=== PATIENT | female | born 1985 | race Caucasian/White ===

== ENCOUNTER → 2024-04-08 09:47 | Outpatient (REF) | payer OTHER, SELFPAY | LOC: HWRAD 09:47 | PROVIDERS: ATTENDING PHYSICIAN Physician Assistant | DX: N80.9 Endometriosis, unspecified (principal); R10.2 Pelvic and perineal pain | CPT/HCPCS: 76830; 76856 ==

== ENCOUNTER 2024-04-09 18:05 | Emergency (ER) | payer OTHER, SELFPAY ==
[2024-04-09 18:07] VITALS: BP 144/86
[2024-04-09 18:20] LABS: % Basophils 1.1 % (0-2); % Immature Granulocytes 0.2 % (0-0.5); % Lymphocytes 43.7 % (20.5-51.1); Absolute Basophils 0.1 10^3/uL (0-0.2); Absolute Eosinophils 0.1 10^3/uL (0-0.7); Absolute Lymphocytes 2.8 10^3/uL (1.2-3.4); Absolute Monocytes 0.5 10^3/uL (0.1-0.6); Absolute Neutrophils 2.9 10^3/uL (1.4-6.5); Hematocrit 39.9 % (37.0-47.0); Hemoglobin 14.3 g/dL (12.0-16.0); Mean Corp Hgb Conc. 35.8 g/dL (33.0-37.0); Mean Corpuscular Hgb 31.3 pg (27.0-31.0); Mean Corpuscular Volume 87.3 fL (81.0-99.0); Mean Platelet Volume 11.1 fL (7.4-10.4); Nucleated Red Blood Cells % 0 %; Platelet Count 200 10^3/uL (130-400); Red Blood Cell Count 4.57 10^6/uL (4.20-5.40); Red Cell Dist. Width 12.1 % (11.5-14.5); White Blood Cell Count 6.4 10^3/uL (4.8-10.8)
[2024-04-09 18:57] LABS: HCG, Serum Qualitative Screen Negative
[2024-04-09 19:07] LABS: ALT (SGPT) 37 U/L (0-35); AST (SGOT) 28 U/L (14-36); Albumin 4.9 g/dl (3.5-5.0); Alkaline Phosphatase 64 U/L (38-126); Blood Urea Nitrogen 11 mg/dl (7-17); Calcium 9.9 mg/dl (8.4-10.2); Carbon Dioxide 30 mmol/L (22-30); Chloride 104 mmol/L (98-107); Glucose 97 mg/dl (70-99); Potassium 4.3 mmol/L (3.5-5.1); Sodium 139 mmol/L (135-145); Total Bilirubin 0.4 mg/dl (0.2-1.3); Total Protein 7.2 g/dl (6.3-8.2); eGFR > 60.00
[2024-04-09] MEDS: MORPHINE SULFATE 4 MG IV (20:05)
[2024-04-09] MEDS: TORADOL 15 MG IV (20:05)
--- NOTE | 2024-04-09 20:12 | ED.GENMED ---
History of Present Illness
General
Chief Complaint: Abdominal Pain
Time Seen by Provider: 04/09/24 19:16
History of Present Illness
History of Present Illness:
38 yo female presents to the Emergency department for evaluation of bilateral lower abdominal pain persistent for the past 4 months but worsening over the past week. She had an outpatient ultrasound yesterday showing a 2.7 cm left ovarian cyst with
no free fluid or signs of hemorrhage. No fevers or chills. Also notes some vaginal spotting. Was previously on maintenance dose of norethindrone 5mg but prior to onset of new symptoms, had decreased to 0.035mg.
Past History
Past History
ED Past Medical History: Other ('VSD', Migraine); Negative Asthma, HTN, Hypercholesterolemia or NIDDM
ED Past Surgical History: Cardiac (Heart surgery at age 5,), Gynecological (Ovarian cyst removed) and Orthopedic
Social History
Tobacco: Non-smoker
Alcohol: Occasional
Personal:
Living: with family
Employment: Employed
Review of Systems
Review of Systems
Allergies reviewed?: Yes
All Other Systems: ROS reviewed and negative except as documented in HPI and ROS
Phy Exam
Physical Exam
Physical Exam:
GEN: Well appearing, NAD, WDWN
HEENT: Oral mucosa moist, no scleral icterus
Cardiac: Regular rate
Lung: No respiratory distress, no tachypnea
Abdomen: Diffusely tender to the lower abdomen, no rigidity, neg McBurney's
MSK: No gross deformity or injuries
Skin: Good color, no pallor or jaundice, no rashes
Neuro: AO x3, moves all extremities freely
Psych: Calm, cooperative
Course
Orders/Labs/Results
Orders:
Orders
04/09/24 18:11
Test Result ONCE
04/09/24 18:15
Complete Blood Count/With Diff Urgent
Comprehensive Metabolic Panel Urgent
HCG, Serum Qualitative Screen Urgent
04/09/24 19:30
CT Abd/Pel (IV only)-DH only Urgent
Comment:
Reason For Exam: LLQ pain
04/09/24 20:01
Ketorolac [Toradol] 15 mg IV NOW STA
Morphine Sulfate 4 mg IV NOW STA
Abnormal Lab Results
04/09/24
18:15
MCH 31.3 H pg
(27.0-31.0)
MPV 11.1 H fL
(7.4-10.4)
ALT 37 H U/L
(0-35)
04/09/24 18:15
04/09/24 18:15
Vital Signs
Initial and Last Documented VS:
Initial Vital Signs
Temp Pulse Resp BP Pulse Ox
99.4 F 71 18 144/86 97
04/09/24 18:07 04/09/24 18:07 04/09/24 18:07 04/09/24 18:07 04/09/24 18:07
Last Documented Vital Signs
Temp Pulse Resp BP Pulse Ox
99.4 F 71 18 144/86 97
04/09/24 18:07 04/09/24 18:07 04/09/24 18:07 04/09/24 18:07 04/09/24 18:07
MDM/Problems Addressed
MDM/Problems Addressed:
Unfortunately imaging reveals no obvious pathology. I suspect there is likely some component of endometriosis or other chronic pelvic disorder. She is encouraged to follow-up as an outpatient with [facility]. Small quantity of pain medicine prescribed
*Critical Care Note
Total Time (30-74mins, 75-104mins- exclusive of procedures): Not Applicable
ED Attending Note
-
Portions of this chart may have been created with voice recognition software.� Occasional wrong word or��sound alike� substitutions may have occurred due to the inherent limitations of voice recognition software.
Discharge Plan
Departure
Patient Disposition: Home (Routine Discharge)
Date of Disposition: 04/09/24
Time of Disposition: 20:29
Patient with high blood pressure during this ER visit?: No
Discharge Problem:
Left lower quadrant abdominal pain, Ovarian cyst
Instructions: Ovarian Cyst (DC)
Prescriptions:
New
oxycodone-acetaminophen [Percocet] 5-325 mg tablet
1 tab PO Q6HPRN PRN (Reason: pain) Qty: 12 0RF
No Action
prenat.vits,dez,mlk-wpge-ugkbi [ Vitamin] 1 EACH tablet
1 tab PO DAILY
ibuprofen 600 MG tablet
600 mg PO Q4HPRN PRN (Reason: moderate pain/cramps) 0RF
Referrals:
Zeinab Sykes PA [Family Provider] -
Kamille Copeland MD [Active] - Call in 1-3 days for appt
Activity Restrictions/Additional Instructions:
Follow up with [facility] as soon as possible to discuss further management
Interventions
Interventions:
*Risk Screen - Suicide Last Done: 04/09/24 18:07
*General Assessment Last Done: 04/09/24 18:07
*Neglect/Abuse Screening Last Done: 04/09/24 18:07
ED- Fall Risk Assessment Last Done: 04/09/24 20:50
IK-Fxwatq-Adsenojkky Assessment Last Done: 04/09/24 20:50
Discharge Date and Time
Print Language: MOHAWK
== END 2024-04-09 21:02 | disposition home or self-care (01) ==
LOC: EMR 18:05
PROVIDERS: Emergency Medicine; EMERGENCY PHYSICIAN Emergency Medicine; FAMILY PHYSICIAN Physician Assistant
DX: R10.32 Left lower quadrant pain (principal); N83.202 Unspecified ovarian cyst, left side
CPT/HCPCS: 99284; 96374; 96375; 74177; 80053; 84703; 85025; Q9967

== ENCOUNTER → 2024-08-15 15:30 | Outpatient (REF) | payer OTHER, SELFPAY | LOC: CLAB 15:30 | PROVIDERS: ATTENDING PHYSICIAN Otolaryngology | DX: J30.9 Allergic rhinitis, unspecified (principal) | CPT/HCPCS: 87070; 87205 ==

== ENCOUNTER → 2025-03-20 13:43 | Outpatient (REF) | payer OTHER, SELFPAY ==
[2025-03-20 14:29] LABS: ALT (SGPT) 28 U/L (0-35); AST (SGOT) 19 U/L (14-36); Albumin 4.7 g/dl (3.5-5.0); Alkaline Phosphatase 39 U/L (38-126); Blood Urea Nitrogen 9 mg/dl (7-17); Calcium 9.4 mg/dl (8.4-10.2); Carbon Dioxide 25 mmol/L (22-30); Chloride 110 mmol/L (98-107); Glucose 114 mg/dl (70-99); Potassium 3.9 mmol/L (3.5-5.1); Sodium 140 mmol/L (135-145); Total Protein 7.3 g/dl (6.3-8.2); eGFR > 60.00
== END ==
LOC: RAD 13:43
PROVIDERS: ATTENDING PHYSICIAN Family Medicine
DX: K57.92 Diverticulitis of intestine, part unspecified, without perforation or abscess without bleeding (principal); R10.9 Unspecified abdominal pain
CPT/HCPCS: 36415; 74177; 80053; Q9967

== ENCOUNTER 2025-04-06 10:30 | Emergency (ER) | payer OTHER, SELFPAY ==
[2025-04-06 10:33] VITALS: BP 135/87
[2025-04-06 12:37] VITALS: BP 136/82
[2025-04-06] MEDS: NSS 1000 IV (12:52)
[2025-04-06 12:55] LABS: Hematocrit 44.7 % (37.0-47.0); Hemoglobin 15.7 g/dL (12.0-16.0); Mean Corp Hgb Conc. 35.1 g/dL (33.0-37.0); Mean Corpuscular Volume 89.6 fL (81.0-99.0); Nucleated Red Blood Cells % 0 %; Platelet Count 212 10^3/uL (130-400); Red Cell Dist. Width 12.3 % (11.5-14.5)
[2025-04-06 12:57] LABS: Urine Character Clear (Clear)
[2025-04-06] MEDS: TORADOL 15 MG IV (12:57)
[2025-04-06 12:59] VITALS: BMI 25.9
[2025-04-06 13:00] VITALS: BP 132/85
--- NOTE | 2025-04-06 13:08 | ED.GENMED ---
History of Present Illness
General
Chief Complaint: Abdominal Pain
Source: patient
Exam Limitations: none
Time Seen by Provider: 04/06/25 11:49
Nursing documentation reviewed up to this point in time: agreed with
History of Present Illness
History of Present Illness:
39 yo female w h/o endometriosis, chronic GI problems, presenting with complaints of left-sided abdominal pain and general abdominal bloating. She describes the pain as pulling and states it is 'kind of all over' her left side. The symptoms have
been ongoing for some time, with a notable flare-up recently. The patient underwent a computed tomography (CT) scan on March 21 due to similar symptoms, which she arranged through her primary care provider. She reports being on a low-residue diet
since then and has been prescribed antibiotics. She initially took Augmentin from March 20 to March 23, discontinued it, due to unremarkable CT scan and then restarted antibiotics on April 02 after experiencing persistent symptoms.
The patient has a history of digestive issues for approximately two years, previously suspected to be related to gluten, which led her to cut it out of her diet a year ago. She also has endometriosis, for which she is on norethindrone. No new
medications have been started recently. The patient is currently experiencing significant discomfort, describing the pain as feeling like her �belly is going to explode.� She reports chronic abdominal pain associated with digestive issues and
endometriosis flare-ups, but notes the bloating and pain have increased in severity.
Past History
Past History
ED Past Medical History: Other (Endometriosis)
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
(PDA))
Social History
Tobacco: Non-smoker
Alcohol: Occasional
Personal:
Living: with family
Employment: Employed
Review of Systems
Review of Systems
Allergies reviewed?: Yes
All Other Systems: ROS reviewed and negative except as documented in HPI and ROS
Constitutional: Denies fever or chills
Cardiac: Denies chest pain
ABD/GI: Reports abdominal pain and constipated (has had few small hard stools past week, took laxative 5 days ago and had diarrhea next day otherwise, daily small stools continue); Denies nausea, vomiting or diarrhea
Phy Exam
Physical Exam
Physical Exam:
GENERAL: No acute distress. A&Ox3.
CONSTITUTIONAL: Afebrile.
EYES: clear, conjunctivae normal
ENMT: moist mucus membranes,
RESPIRATORY: Regular respirations, nonlabored, lungs clear.
CARDIOVASCULAR: Regular rate and rhythm, no murmurs, no rubs.
GI: Soft, generally moderately tender to palpation, normal BS
MUSCULOSKELETAL: Moves with ease. Well perfused.
SKIN: Warm, dry, pink
PSYCH: Normal mood and affect. Well kept, interactive and appropriate
NEUROLOGIC: Awake, alert and oriented. No focal neurological deficits
Course
Orders/Labs/Results
Orders:
Orders
04/06/25 12:15
IV Insert/Care/Rem.- Treatment PRN
Ketorolac [Toradol] 15 mg IM NOW STA
04/06/25 12:16
Test Result ONCE
04/06/25 12:21
0.9% Sodium Chloride 1000 ml [Nss] 1,000 ml IV BOLUS
Test Result ONCE
US Pelvis W Transvag Combined Urgent
Comment:
Reason For Exam: gen abd pain, neg CT scan, hx edometriosis
04/06/25 12:47
Complete Blood Count/With Diff Urgent
Comprehensive Metabolic Panel Urgent
HCG, Serum Qualitative Screen Urgent
Lipase Urgent
Urinalysis Reflex To Culture Urgent
Date Specimen was Collected: 04/06/25
Time Specimen was Collected: 12:19
Urine Microscopic Reflex Cult Urgent
04/06/25 12:54
Ketorolac [Toradol] 15 mg IV NOW STA
Abnormal Lab Results
04/06/25
12:47
MCH 31.5 H pg
(27.0-31.0)
MPV 10.6 H fL
(7.4-10.4)
ALT 43 H U/L
(0-35)
Urine Ketones 2+ A
(Negative)
Ur Occult Blood Reflex 2+ A
(Negative)
Urine RBC 3-6 A /HPF
(0-2)
04/06/25 12:47
04/06/25 12:47
Vital Signs
Initial and Last Documented VS:
Initial Vital Signs
Temp Pulse Resp BP Pulse Ox
98.1 F 71 16 135/87 100
04/06/25 10:33 04/06/25 10:33 04/06/25 10:33 04/06/25 10:33 04/06/25 10:33
Last Documented Vital Signs
Temp Pulse Resp BP Pulse Ox
98.1 F 65 19 127/83 99
04/06/25 10:33 04/06/25 15:45 04/06/25 15:45 04/06/25 15:00 04/06/25 15:45
MDM/Problems Addressed
Differential Diagnosis Includes:
- Diverticulitis
- Inflammatory Bowel Disease (Ulcerative Colitis, Crohns Disease)
- Irritable Bowel Syndrome
- Celiac Disease
- Small Intestinal Bacterial Overgrowth
- Endometriosis-associated intestinal involvement
- Gastroenteritis
- PID
MDM/Problems Addressed:
39 yo female w h/o endometriosis, chronic GI problems, presenting with complaints of left-sided abdominal pain and general abdominal bloating. She describes the pain as pulling and states it is 'kind of all over' her left side. The symptoms have
been ongoing for some time, with a notable flare-up recently. The patient underwent a computed tomography (CT) scan on March 21 due to similar symptoms, which she arranged through her primary care provider. She reports being on a low-residue diet
since then and has been prescribed antibiotics. She initially took Augmentin from March 20 to March 23, discontinued it, due to unremarkable CT scan and then restarted antibiotics on April 02 after experiencing persistent symptoms.
The patient has a history of digestive issues for approximately two years, previously suspected to be related to gluten, which led her to cut it out of her diet a year ago. She states she also has endometriosis, for which she is on norethindrone. No
new medications have been started recently. The patient is currently experiencing significant discomfort, describing the pain as feeling like her �belly is going to explode.� She reports chronic abdominal pain associated with digestive issues and
endometriosis flare-ups, but notes the bloating and pain have increased in severity. Ibuprofen helps the pain temporarily
3:[address] scan abd/pelvis with po and IV contrast from 03/21: No acute findings, no kidney stones.
CBC normal
CMP normal
Lipase normal
HCG neg.
US pelvis radiology report read: 1. Essentially unremarkable pelvic ultrasound as described. Copy given to pt.
Pt has GI appointment in 3 days.
She will use Ibuprofen in the meantime since it helped
She will continue Augmentin until further instructed by GI in 3 days.. No diarrhea
*Pulse Oximetry
SaO2: 100
Oxygen Mode of Delivery: Room air
Patient hypoxic: not evaluated
*Critical Care Note
Total Time (30-74mins, 75-104mins- exclusive of procedures): Not Applicable
ED Attending Note
-
Portions of this chart may have been created with voice recognition software.� Occasional wrong word or��sound alike� substitutions may have occurred due to the inherent limitations of voice recognition software.
Discharge Plan
Departure
Patient Disposition: Home (Routine Discharge)
Date of Disposition: 04/06/25
Time of Disposition: 15:52
Patient with high blood pressure during this ER visit?: No
Condition: Good
Discharge Problem:
Abdominal pain
Instructions: Abdominal Pain
Prescriptions:
No Action
prenat.vits,dez,bqm-asrl-symph [ Vitamin] 1 EACH tablet
1 tab PO DAILY
ibuprofen 600 MG tablet
600 mg PO Q4HPRN PRN (Reason: moderate pain/cramps) 0RF
oxycodone-acetaminophen [Percocet] 5-325 mg tablet
1 tab PO Q6HPRN PRN (Reason: pain) Qty: 12 0RF
Referrals:
Zeinab Sykes PA [Family Provider, Family Practice]
Activity Restrictions/Additional Instructions:
As we discussed, ibuprofen 600 mg every 6 hours as needed for pain.
Keep your appointment on Monday with the GI doctor.
Interventions
Interventions:
*Risk Screen - Suicide Last Done: 04/06/25 10:33
*General Assessment Last Done: 04/06/25 15:05
*Neglect/Abuse Screening Last Done: 04/06/25 10:33
*ED- Fall Risk Assessment Last Done: 04/06/25 15:05
*ED COVID-19 Vaccine History Last Done: 04/06/25 15:05
*Nursing Disposition Last Done: 04/06/25 16:12
YH-Zaebvl-Ngkeirtwhx Assessment Last Done: 04/06/25 15:08
Discharge Date and Time
Discharge Date/Time: 04/06/25 16:10
Print Language: POLISH
[2025-04-06 13:10] LABS: ALT (SGPT) 43 U/L (0-35); AST (SGOT) 21 U/L (14-36); Albumin 5.0 g/dl (3.5-5.0); Alkaline Phosphatase 49 U/L (38-126); Blood Urea Nitrogen 9 mg/dl (7-17); Calcium 9.5 mg/dl (8.4-10.2); Carbon Dioxide 27 mmol/L (22-30); Chloride 106 mmol/L (98-107); Estimated Creatinine Clearance 92 ml/min; Glucose 90 mg/dl (70-99); Lipase 176 U/L (23-300); Potassium 4.0 mmol/L (3.5-5.1); Sodium 139 mmol/L (135-145); Total Protein 7.8 g/dl (6.3-8.2); eGFR > 60.00
[2025-04-06 13:12] LABS: HCG, Serum Qualitative Screen Negative
[2025-04-06 13:28] LABS: Urine Squamous Cell >30 /LPF (Few)
[2025-04-06 13:30] LABS: Urine White Cell 0-2 /HPF (0-5)
[2025-04-06 14:00] VITALS: BP 123/76
[2025-04-06 15:00] VITALS: BP 127/83
== END 2025-04-06 16:10 | disposition home or self-care (01) ==
LOC: EMR 10:30
PROVIDERS: Registered Nurse; EMERGENCY PHYSICIAN Emergency Medicine; FAMILY PHYSICIAN Physician Assistant
DX: R10.9 Unspecified abdominal pain (principal); R14.0 Abdominal distension (gaseous); R11.0 Nausea; N80.9 Endometriosis, unspecified
CPT/HCPCS: 99284; 96374; 96361; 76830; 76856; 80053; 81003; 81015; 83690; 84703; 85025

== ENCOUNTER 2025-04-17 06:23 | Day surgery (SDC) | payer OTHER, SELFPAY | END 2025-04-17 14:22 | disposition home or self-care (01) | LOC: GI 06:23 | PROVIDERS: ATTENDING PHYSICIAN Specialist | DX: Z12.11 Encounter for screening for malignant neoplasm of colon (principal); K62.5 Hemorrhage of anus and rectum; R19.4 Change in bowel habit; K57.30 Diverticulosis of large intestine without perforation or abscess without bleeding; K63.5 Polyp of colon; Z80.0 Family history of malignant neoplasm of digestive organs | CPT/HCPCS: 45380; 88305 ==